=== PATIENT | female | born 1940 | race Caucasian/White ===

== ENCOUNTER → 2016-05-30 | Outpatient (REF) ==
[~2016-05-30] MED LIST: ACCUPRIL40 MG PO; ALLEGRA60 MG PO; AMBIEN 10MG10 MG PO; CARDURA 2MG2 MG PO; CLEOCIN HCL300 MG PO; CLINDAMYCIN HC300 MG PO; DOXAZOSIN4 MG PO; HCTZ PO; LEVAQUIN 750MG750 MG PO; LEXAPRO20 MG PO; LORTAB 5/500 501 TAB PO; NORCO 325 MG-51 TAB PO; PERCOCET 325 MG1 TA2 PO; PRILOSEC10 MG PO; ZESTRIL 10MG10 MG PO; ZITHROMAX Z PA250 MG PO; ZOCOR; ZOFRAN4 M1 PO
== END ==
LOC: ZLAB.WCH 11:53
DX: Z01.89 Encounter for other specified special examinations (principal)

== ENCOUNTER 2017-09-03 10:13 | Emergency (ER) | payer MEDICARE ==
[~2017-09-03] VITALS: Ht 162.6 cm; Wt 77.3 kg
[~2017-09-03 10:13] MED LIST changes: +PRIL40 PO; -PRILOSEC10 MG PO
[2017-09-03 10:24] VITALS: BP 162/87; TEMP 97.8
[2017-09-03 11:54] VITALS: PULSE 72
== END 2017-09-03 11:56 | disposition home or self-care (01) ==
LOC: COL.ER 10:13
DX: H61.23 Impacted cerumen, bilateral (principal); J06.9 Acute upper respiratory infection, unspecified; I10 Essential (primary) hypertension; E78.5 Hyperlipidemia, unspecified

== ENCOUNTER → 2017-09-14 | Outpatient (REF) | LOC: ZLAB.WCH 15:14 | DX: Z01.89 Encounter for other specified special examinations (principal) ==

== ENCOUNTER 2018-05-23 10:56 | Inpatient (IN) | payer MEDICARE ==
[~2018-05-23] VITALS: Ht 157.5 cm; Wt 82.8 kg
[2018-06-27] VITALS (11 sets, daily range): BP systolic 97–178; BP diastolic 55–84; PULSE 66–78; TEMP 98–98.1
--- NOTE | 2018-06-27 07:40 | NUR ---
arrived per WC to room 327 at 0630, prepped for surgery without incident, explanation given to patient and her family for going to and returning from surgery, verbalizes understanding
--- NOTE | 2018-06-27 12:40 | NUR ---
returned to room per bed from PACU, awake and alert, IV infusing and placed on pump at 100ml/hr, O2 on at 2L/NC and O2 sat 97%, SCDS and AMANDA hose on bilaterally, has sensation to feet and minimal movement, dressing to right hip CD&I, denies needs at this time, family at bedside
--- NOTE | 2018-06-27 13:00 | NUR ---
full assessment completed, see interventions for further info, taking sips of water and tolerates well
--- NOTE | 2018-06-27 14:00 | NUR ---
c/o pain to right hip, medicated with roxicodone 5mg
--- NOTE | 2018-06-27 14:30 | NUR ---
continues to c/o pain to right hip, medicated with morphine 2mg slow IV, watching TV, family at bedside
--- NOTE | 2018-06-27 15:33 | NUR ---
entered room and appears to be dozing, eyes closed, resp quiet and easy, family at bedside
--- NOTE | 2018-06-27 16:20 | NUR ---
assisted up and ambulated into bathroom and voided qs, then back to bed
--- NOTE | 2018-06-27 18:19 | NUR ---
resting in bed, encouraged to order something to eat
--- NOTE | 2018-06-27 18:47 | NUR ---
bedside shift report given to MANDI Sandra
--- NOTE | 2018-06-27 20:00 | NUR ---
Assessment completed. Patient is A&O x 4. VSS, on room air. Pain controlled at this time with alternating [place]/Shira. Bulky foam tape dressing to right hip is CDI with an ice pack maintained to hip. BLE ilir hose/scds on. Ilir hose cut and removed from patient's right thigh as it had left bruising. Tolerating diet with no c/o nausea. Voiding with no difficulities. IVF infusing with intermittent antibiotic per orders. Up with assist x 1 with walker and gait belt, gait slow and steady. Ambulated 50 feet with staff this evening. Denies any concerns or needs at this time, call light is within reach.
[2018-06-28 00:03] VITALS: BP 111/62; PULSE 78; TEMP 98.4
[2018-06-28 04:10] VITALS: BP 105/74; PULSE 75; TEMP 98.4
[2018-06-28 06:09] LABS: HEMATOCRIT 36.2 % (37.0-47.0)
--- NOTE | 2018-06-28 06:22 | NUR ---
Patient has rested well through the night. VSS. Pain controlled with alternating [place]/Shira. Bulky foam tape dressing to right hip remains CDI with an ice pack maintained to hip. Up with standby assist with walker through the night to the restroom, gait remains slow and steady. IV to INT after last dose of antibiotic this morning. Denies any concerns or needs at this time, call light is within reach.
[2018-06-28 07:35] VITALS: BP 120/81; PULSE 74; TEMP 97.6
--- NOTE | 2018-06-28 08:33 | NUR ---
PT RESTING IN BED. REFUSED BREAKFAST. PO PAIN MEDCATIONS FOR SURGICAL PAIN, PT DENIES NEEDS AT THIS TIME. IV ABX COMPLETE, IV FLUIDS DISCONTINUED.
--- NOTE | 2018-06-28 11:23 | NUR ---
First visit from the soil fertility specialist. No needs right now.
[2018-06-28 11:53] VITALS: BP 110/61; PULSE 79; TEMP 97.8
--- NOTE | 2018-06-28 14:37 | NUR ---
SW and SW student met with patient to discuss discharge planning. Patient lives with family in [place]. She reports she has a walker and does not need outpatient therapy. Patient does not have a DPOA and is not interested in filling one out. Patients PCP is Dr Nick Dewey and she obtains her medications from [facility] in . Patient plans on DC home with family. No anticipated discharge needs identified.
[2018-06-28 15:09] VITALS: BP 108/57; PULSE 74; TEMP 98.3
--- NOTE | 2018-06-28 19:45 | NUR ---
Assessment completed. Patient is A&O x 4. VSS, on room air. Pain controlled with alternating [place]/Shira. Bulky foam tape dressing to right hip is CDI with an ice pack maintained to hip. Pedal pulses intact. BLE joel hose removed as it rolls down on patient's thigh and has caused bruising, BLE scds on. Tolerating diet with no c/o nausea. Voiding with no difficulities. Up with standby assist x 1 with walker and gait belt, gait is slow and steady. INT to left forearm. Denies any concerns or needs at this time. Bed is in a low position with call light in reach.
[2018-06-28 20:32] VITALS: BP 126/56; PULSE 87; TEMP 98.1
--- NOTE | 2018-06-28 22:59 | NUR ---
Patient is resting with eyes closed in bed with even respirations, does not appear to be in any distress at this time.
--- NOTE | 2018-06-29 03:21 | NUR ---
Patient awakened for nursing care, denies any pain or needs at this time. Assisted with repositioning and a fresh ice pack applied to right hip.
[2018-06-29 04:46] VITALS: BP 119/59; PULSE 98; TEMP 98.8
[2018-06-29 06:19] LABS: HEMOGLOBIN 11.3 g/dl (12.5-16.0)
--- NOTE | 2018-06-29 06:19 | NUR ---
Patient has rested well through the night. Denies any pain at this time, received pain medication last night. Bulky foam tape dressing to right hip removed this morning and an aquacell dressing applied per orders. Fresh ice pack applied to right hip. Up to the bathroom with standby assist with walker, gait remains slow and steady. Denies any concerns or needs at this time, call light is within reach.
[2018-06-29 06:25] LABS: HEMATOCRIT 33.8 % (37.0-47.0)
[2018-06-29] MEDS ORDERED: NORCO 325 MG-7.1 TAB PO (06:53)
[2018-06-29] MEDS ORDERED: XARELTO10 MG PO (06:53)
[2018-06-29] MEDS ORDERED: ROXICODONE 55 MG/TAB PO (06:54)
--- NOTE | 2018-06-29 07:04 | NUR ---
REPORT FROM PIPER RAYMOND. FERNANDEZ MOORE IN TO SEE PATEINT PLAN ON DISCHARGE LATER TODAY.
[2018-06-29 07:29] VITALS: BP 118/53; PULSE 79; TEMP 97.7
--- NOTE | 2018-06-29 08:34 | NUR ---
PATIENT UP TO RECLINER. NEW ORDERS RECIEVED. PLAN ON DISCHARGE LATER TODAY. DRESSING TO RIGHT HIP CDI.
--- NOTE | 2018-06-29 10:44 | NUR ---
PT RESISTIVE TO OT. EXPLAINED REASONS FOR HAVING THERAPIST ASSIST WITH SHOWER AND PATIENT VERBALIZED UNDERSTANDING AND WORKED WITH OT THIS AM.
[2018-06-29 11:52] VITALS: BP 104/50; PULSE 79; TEMP 98.1
--- NOTE | 2018-06-29 13:07 | NUR ---
Initial visit; Patient thanked Clinical Pharmacist for stopping though declined spiritual care at this time.
--- NOTE | 2018-06-29 15:33 | NUR ---
discharge instructions given to patient and family many questions answered. Pt and family verbalized understanding. pt take per wheel chair to front.
== END 2018-06-29 15:34 | disposition home or self-care (01) | DRG 470 ==
LOC: JCC 06-27 06:27
PROVIDERS: ADMIT Orthopaedic Surgery
PROC: 0SR90JA Replacement of Right Hip Joint with Synthetic Substitute, Uncemented, Open Approach (ICD-10-PCS; principal; 2018-06-27 10:30)
DX: M16.11 Unilateral primary osteoarthritis, right hip (principal); E78.5 Hyperlipidemia, unspecified; I10 Essential (primary) hypertension
CPT/HCPCS: A9284; C1776; J0690; J2250; J2270; J2405; J2704; J3010; J7042; J7120

== ENCOUNTER → 2018-06-06 | Outpatient (REF) | LOC: ZLAB.WCH 18:20 | DX: Z01.89 Encounter for other specified special examinations (principal) ==

== ENCOUNTER → 2018-06-20 | Outpatient (CLI) | payer MEDICARE | LOC: COL.LAB 15:01 | DX: Z01.812 Encounter for preprocedural laboratory examination (principal) ==

== ENCOUNTER → 2018-09-13 | Outpatient (CLI) | payer MEDICARE ==
[~2018-09-13] MED LIST changes: +NORCO 325 MG-7.1 TAB PO; +ROXICODONE 55 MG/TAB PO; +XARELTO10 MG PO
[2018-09-13 14:52] LABS: COLLECTION METHOD CLEAN CATCH
[2018-09-13 14:59] LABS: MUCOUS Present /lpf; PH 6 (5-8); SQUAMOUS EPITHELIAL 0-2 /hpf; URINE APPEARANCE Clear; URINE BACTERIA None Seen /hpf; URINE BILIRUBIN Negative (NEGATIVE); URINE BLOOD Negative (NEGATIVE); URINE COLOR Straw; URINE GLUCOSE Negative (NEGATIVE); URINE KETONE Negative (NEGATIVE); URINE LEUKOCYTE ESTERASE Negative (NEGATIVE); URINE NITRATE Negative (NEGATIVE); URINE PROTEIN(semi-quant) Negative (NEGATIVE); URINE RBC None Seen /hpf; URINE UROBILINOGEN Negative (NEGATIVE); URINE WBC None Seen /hpf
== END ==
LOC: COL.LAB 14:24
PROVIDERS: Internal Medicine
DX: N30.00 Acute cystitis without hematuria (principal)

== ENCOUNTER 2019-02-10 16:00 | Emergency (ER) | payer MEDICARE ==
[~2019-02-10] VITALS: Ht 157.5 cm; Wt 83.2 kg
[2019-02-10 16:06] VITALS: TEMP 97.1
[2019-02-10 16:44] LABS: BASO # 0.1 (0.0-0.2); BASO % 0.6 % (0.0-2.0); EOS # 0.2 (0.0-0.7); EOS % 1.4 % (0-4.0); GRAN % 57.2 % (42.2-75.2); HEMATOCRIT 43.8 % (37.0-47.0); HEMOGLOBIN 14.6 g/dl (12.5-16.0); LYMPH # 3.6 (1.2-3.4); MEAN CELL VOLUME 92 fl (80.0-100.0); MEAN CORPUSCULAR HEMOGLOBIN 31 pg (27.0-31.0); MEAN CORPUSCULAR HGB CONC 33 g/dl (33.0-37.0); MEAN PLATELET VOLUME 11.9 fl (7.4-10.4); MONO # 0.7 (0.1-0.6); MONO % 6.4 % (1.7-9.3); PLATELET COUNT 152 K/mm3 (130-400); RED BLOOD COUNT 4.75 M/mm3 (4.10-5.30); REDCELL DISTRIBUTION WIDTH-CV 13.7 % (11.5-14.5)
[2019-02-10 16:58] LABS: ALANINE AMINOTRANSFERASE 8 U/L (9-52); ALBUMIN 4.5 gm/dL (3.5-5.0); ALKALINE PHOSPHATASE 56 U/L (50-136); ANION GAP 7 mmol/L (7-16); AST,SGOT 23 U/L (15-37); BILIRUBIN,TOTAL 0.3 mg/dL (0.0-1.0); BLOOD UREA NITROGEN 16 mg/dL (7-17); CALCIUM 9.4 mg/dL (8.4-10.2); CARBON DIOXIDE 31 mmol/L (22-30); CHLORIDE 101 mmol/L (98-107); CREATININE, serum 0.91 (0.52-1.25); GLUCOSE 118 mg/dL (74-106); POTASSIUM 3.9 mmol/L (3.4-5.0); SODIUM 139 mmol/L (137-145); TOTAL PROTEIN 7.9 gm/dL (6.4-8.2)
[2019-02-10 17:17] LABS: TROPONIN-I < 0.012 ng/mL (0.000-0.035)
[2019-02-10] MEDS ORDERED: ANTIVERT 12.512.5 MG PO (18:29)
[2019-02-10] MEDS ORDERED: CIPRODEX OT (18:29)
[2019-02-10 18:45] VITALS: BP 167/97; PULSE 77
== END 2019-02-10 18:49 | disposition home or self-care (01) ==
LOC: COL.ER 16:00
PROVIDERS: Emergency Medicine
DX: H60.91 Unspecified otitis externa, right ear (principal); H61.21 Impacted cerumen, right ear; R42 Dizziness and giddiness; I10 Essential (primary) hypertension; E78.5 Hyperlipidemia, unspecified; F32.9 Major depressive disorder, single episode, unspecified; F41.9 Anxiety disorder, unspecified; K58.9 Irritable bowel syndrome, unspecified; E66.9 Obesity, unspecified

== ENCOUNTER 2020-11-05 14:02 | Emergency (ER) | payer MEDICARE, OTHER ==
[~2020-11-05] VITALS: Ht 157.5 cm; Wt 83.2 kg
[~2020-11-05 14:02] MED LIST changes: +ANTIVERT 12.512.5 MG PO; +CIPRODEX OT
[2020-11-05 14:11] VITALS: TEMP 97.5
[2020-11-05 16:00] VITALS: BP 167/99; PULSE 91
== END 2020-11-05 16:00 | disposition home or self-care (01) ==
LOC: COL.ER 14:02
DX: S90.02XA Contusion of left ankle, initial encounter (principal); I10 Essential (primary) hypertension; Z79.899 Other long term (current) drug therapy; W22.8XXA Striking against or struck by other objects, initial encounter

== ENCOUNTER 2021-05-21 12:21 | Emergency (ER) | payer MEDICARE ==
[~2021-05-21] VITALS: Ht 157.5 cm; Wt 83.6 kg
[2021-05-21 12:31] VITALS: TEMP 97.9
[2021-05-21 13:00] LABS: BASO % 0.4 % (0.0-2.0); EOS % 0.5 % (0.0-4.0); GRAN # 4.7 K/mm3 (1.4-6.5); GRAN % 62.6 % (42.2-75.2); HEMATOCRIT 42.4 % (37.0-47.0); HEMOGLOBIN 14.2 g/dl (12.5-16.0); LYMPH # 2.2 K/mm3 (1.2-3.4); LYMPH % 29.5 % (20.0-51.0); MEAN CELL VOLUME 91 fl (80.0-100.0); MEAN CORPUSCULAR HEMOGLOBIN 31 pg (27-31); MEAN CORPUSCULAR HGB CONC 34 g/dl (33.0-37.0); MEAN PLATELET VOLUME 11.9 fl (7.4-10.4); MONO # 0.5 K/mm3 (0.1-0.6); MONO % 6.5 % (1.7-9.3); PLATELET COUNT 135 K/mm3 (130-400); RED BLOOD COUNT 4.65 M/mm3 (4.10-5.30)
[2021-05-21 13:15] LABS: ALBUMIN 4.1 gm/dL (3.4-4.8); BILIRUBIN,TOTAL 0.6 mg/dL (0.2-1.2); C-REACTIVE PROTEIN 0.57 mg/dL (0.00-0.50); CALCIUM 8.5 mg/dL (8.4-10.2); CREATININE, serum 0.92 mg/dL (0.57-1.11); POTASSIUM 3.4 mmol/L (3.5-4.5); TOTAL PROTEIN 7.9 gm/dL (6.2-8.1)
[2021-05-21 13:21] LABS: TROPONIN-I 0.014 ng/mL (0.00-0.033)
[2021-05-21 14:20] LABS: COLLECTION METHOD CLEAN CATCH
[2021-05-21 14:31] LABS: MUCOUS Present (NOT PRESENT); PH 5 (5-8); SQUAMOUS EPITHELIAL 0-2 /hpf (0-10); URINE APPEARANCE Hazy (CLEAR/HAZY); URINE BACTERIA Rare /hpf (NONE SEEN); URINE BILIRUBIN Negative (NEGATIVE); URINE BLOOD 2+ (NEGATIVE); URINE COLOR Yellow (YELLOW); URINE GLUCOSE Negative (NEGATIVE); URINE KETONE Negative (NEGATIVE); URINE LEUKOCYTE ESTERASE 1+ (NEGATIVE); URINE NITRATE Positive (NEGATIVE); URINE PROTEIN(semi-quant) Negative (NEGATIVE); URINE UROBILINOGEN Negative (NEGATIVE)
[2021-05-21] MEDS ORDERED: LEVAQUIN 5500 MG/TA1 PO (16:18)
[2021-05-21 16:39] VITALS: BP 157/109; PULSE 97
== END 2021-05-21 16:45 | disposition home or self-care (01) ==
LOC: COL.ER 12:21
PROVIDERS: Emergency Medicine
DX: U07.1 COVID-19 (principal); N39.0 Urinary tract infection, site not specified; T18.4XXA Foreign body in colon, initial encounter; I10 Essential (primary) hypertension; Z88.1 Allergy status to other antibiotic agents; Z79.899 Other long term (current) drug therapy
CPT/HCPCS: Q9967

== ENCOUNTER → 2021-06-12 | Outpatient (CLI) | payer MEDICARE ==
[~2021-06-12] MED LIST changes: +LEVAQUIN 5500 MG/TA1 PO
== END ==
LOC: COL.LAB 13:09
DX: N39.0 Urinary tract infection, site not specified (principal)